=== PATIENT | female | born 1980 | race Two or more races ===

== ENCOUNTER 2025-02-02 12:28 | Outpatient (AMB) | payer OTHER, SELFPAY ==
--- NOTE | 2025-02-02 12:45 | A.OFFPC_ITS ---
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 Allergies bupropion [From Wellbutrin] Allergy (Verified 02/02/25 12:48) nausea, diarrhea zolpidem [From Ambien] Allergy (Verified 02/02/25 12:48) nausea, diarrhea Medication List - Last Reconciled 02/02/25 by PREET Varner- cetirizine (All Day Allergy (cetirizine)) 10 mg PO DAILY PRN docusate sodium 100 mg PO DAILY PRN 90 days fluticasone furoate 50 mcg/actuation 1 inh inhalation Q24H 30 days simethicone (Gas Relief (simethicone)) 80 mg PO BID-QID PRN 30 days Tobacco use date assessed: 02/02/25 Dental Screening Dental Screen Date: 02/02/25 Did you have a dental visit in the last 12 months?: Yes Did you have a dental problem in the last 6 months where you did not have access to dental care?: No Was dental information given to patient?: Patient has 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 History of Present Illness The patient is a 44-year-old female presenting with chronic constipation management. She relocated from [place] and seeks evaluation and treatment as a new patient. She has a medical history significant for a gastrectomy last fall, which resulted in a 45-pound weight loss. Her history also includes prior bariatric surgery, although details of that procedure were not provided. The patient denies any recent episodes of chest pain, shortness of breath, or hematochezia but confirms persistent constipation requiring medication. She requests refills for her allergy medications. Regular gynecological care includes Pap smears, and her electron gun inspector performs breast examinations. Despite encouragement, she refuses mammograms. She lacks recent colon screening in the [facility] and will be referred for such consideration. Hx of HTN, though better since bariatric surg. Requesting STD testing, reports completely asymptomatic Social History - Origin: [place] - Surgical History: History of bariatric surgery and gastrectomy - Gynecological care: Regular Pap smears with breast examinations by [facility] - Refusal of mammography - No recent [facility] colon screening Health Maintenance - Referral for colon screening due to la ck of recent examination in [facility]. - Encouragement for mammogram; patient r efusal noted. Review of Systems - Cardiovascular: Denies chest pain or s hortness of breath - Gastrointestinal: Reports constipation ; denies abdominal pain or blood in stool - Respiratory: Denies shortness of breat h - General: Reports feeling generally wel l following gastrectomy Physical Exam General: Cooperative, healthy appearing, comfortable, no acute distress and well developed Orientation: Patient oriented x3 Limitations: No limitations Head: Normal to inspection Ears: Hearing grossly normal bilaterally Nose: Normal external nose present Face and sinus: Normal facial exam Eyes: Appearance normal, both eyes and all related structures Neck: Normal visual inspection and Yes full ROM Respiratory: Normal respiratory effort and able to speak in complete sentences. Clear to auscultation bilaterally Cardiovascular: Regular rate and rhythm. Normal S1 and S2 GI: Normal to inspection. Soft to palpation and nontender Skin: No rashes or lesions noted Neuro: Patient oriented x3 Extremities: Normal to inspection Results Plan For chronic constipation, medication management will continue, and allergy medication refills will be provided. A referral for a colonoscopy is indicated, considering her lack of recent colon screening. Despite discussion, the patient refused mammography, preferring examinations by her electron gun inspector. Education on mammogram importance was revisited, but the patient declined. Discussion Notes I discussed with the patient the management of her chronic constipation, including continuing her current medication regimen. In terms of her allergies, I confirmed that I will call in her medication refills. We reviewed her need for a colonoscopy, which she agreed to pursue given the uncertainty of having had one previously in [place]. The importance of regular mammograms was emphasized in light of her refusal; however, she prefers to rely on her electron gun inspector's breast exams instead. Follow-up on these matters was advised, highlighting health maintenance and preventative care strategies. Patient Instructions - Continue taking medication for constip ation as prescribed. - Monitor for any changes in symptoms an d report back if necessary. - Ensure to refill allergy medications f or continued allergy management. - Expect contact about scheduling a colo noscopy for screening. - Discuss regular health screenings with your healthcare provider, including the potential benefit of mammograms. PFSH Surgical History Hx of bariatric surgery Family History Father Hx of prostatic malignancy Hypertension Mother Diabetes Hypertension Social History (Reviewed 02/02/25 @ 13:21 by [facility] Housing: House Patient Tobacco Use Status: Never used Tobacco e-Cigarette/Vaping Use: Never Used service: No Current occupational status: employed Cognitive needs: No Hearing needs: No Vision needs: Yes Questionnaire PHQ-9 Over the last 2 weeks, how often have you been bothered by any of the following problems? 1. Little interest or pleasure in doing things: not at all 2. Feeling down, depressed, or hopeless: several days 3. Trouble falling or staying asleep, or sleeping too much: several days 4. Feeling tired or having little energy: several days 5. Poor appetite or overeating: several days 6. Feeling bad about yourself - or that you are a failure or have let yourself or your family down: not at all 7. Trouble concentrating on things, such as reading the newspaper or watching television: not at all 8. Moving or speaking so slowly that other people could have noticed. Or the opposite - being so fidgety or restless that you have been moving around a lot more than usual: not at all 9. Thoughts that you would be better off or of hurting yourself in some way: not at all Total score: 4 Depression Screening Interpretation: Negative Depression Screening Done: Yes 75915 - PHQ-9 Billing: Yes Source: Developed by Drs. Fareed Vick, Claudette Quezada, Justin Graves and colleagues, with an educational wallace from [employer]. Thrive Questionnaire Date Thrive assessed: 02/02/25 I am a: Parent/Caregiver What is your living situation today?: I choose not to answer this question Within the past 12 months, did the food you bought not last and you didn't have the money to get more?: I choose not to answer this question Within the past 12 months, did you worry whether your food would run out before you got money to buy more?: I choose not to answer this question Do you have trouble paying for medicines?: No Do you have trouble getting transportation to medical appointments?: No Do you have trouble paying your heating and electricity bill?: No Do you have trouble taking care of your child, family member or friend?: No Do you have trouble with day-to-day activities such as bathing, preparing meals, shopping, managing finances, etc.?: No Are you currently unemployed and looking for a job?: No Are you interested in more education?: No Please select the resources that you would like help with: None Currently or been in a relationship where the following occur: I choose not to answer THRIVE Score: 0 AUDIT C Alcohol Use Questionnaire (AUDIT-C) 1. How often do you have a drink containing alcohol?: Never 3. How often do you have six or more drinks on one occasion?: Never Total Score: 0 REBECA-7 AMB Questionnaire REBECA-7 Feeling nervous, anxious, or on edge: 2 = More than half the days Not being able to stop or control worryin = Not at all Worrying too much about different things: 1 = Several days Trouble relaxin = Several days Being so restless that it is hard to sit still: 0 = Not at all Becoming easily annoyed or irritable: 0 = Not at all Feeling afraid as if something awful might happen: 0 = Not at all Total REBECA-7 score (0-4 normal; 5-9 mild; 10-14 moderate; 15-21 severe): 4 Source: Developed by Drs. Fareed Vick, Claudette Quezada, Justin Graves and colleagues, with an educational wallace from [employer]. REBECA-7 Assessment Billing REBECA-7 Assessment Tool: REBECA-7 Assessment 68034 Physical exam (Primary Care) BMI result Body Mass Index 28.4 Depression Screening Interpretation: Negative Thrive Assessment: Date of Thrive Assessment Date Thrive assessed 02/02/25 02/02/25 12:00 Currently or been in a relationship where the following occur: I choose not to answer Coding Level of Care Code New Pt Level 3 (51293) Diagnoses Screening for colon cancer Z12.11 Constipation K59.00 HTN (hypertension) I10 Screening for STD (sexually transmitted disease) Z11.3 Additional Codes PHQ-9 - 29196 - PHQ-9 Billing: Yes ([id number]) REBECA-7 Assessment Billing - REBECA-7 Assessment Tool: REBECA-7 Assessment 32890 ([id number]) Assessment & Plan Assessment & Plan (1) Screening for colon cancer: Code(s): Z12.11 - Encounter for screening for malignant neoplasm of colon Category: Medical (2) Constipation: Code(s): K59.00 - Constipation, unspecified Category: Medical (3) HTN (hypertension): Code(s): I10 - Essential (primary) hypertension Category: Medical (4) Screening for STD (sexually transmitted disease): Code(s): Z11.3 - Encounter for screening for infections with a predominantly sexual mode of transmission Category: Medical Plan . Orders: Orders Complete Blood Count Auto Diff Today Z12.11 - Encounter for screening for malignant neoplasm of colon TSH reflex Free T4 Today Z12.11 - Encounter for screening for malignant neoplasm of colon UA CC w/rflx Micro + Cult Today Z12.11 - Encounter for screening for malignant neoplasm of colon Lipid Panel Today Z12.11 - Encounter for screening for malignant neoplasm of colon CT NG by PCR Today Z11.3 - Encounter for screening for infections with a predominantly sexual mode of transmission Comprehensive [place]. Panel Fast Today Z12.11 - Encounter for screening for malignant neoplasm of colon Vitamin D 25-OH Total Today I10 - Essential (primary) hypertension, K59.00 - Constipation, unspecified Syphilis Screen Today Z11.3 - Encounter for screening for infections with a predominantly sexual mode of transmission HIV Ab/Ag Today Z11.3 - Encounter for screening for infections with a predominantly sexual mode of transmission Hepatitis A,B,C Profile Today Z11.3 - Encounter for screening for infections with a predominantly sexual mode of transmission Referrals Gastroenterology Referral Z12.11 - Encounter for screening for malignant neoplasm of colon Medications: New simethicone (Gas Relief (simethicone)) 80 mg PO BID-QID 30 days PRN 120 tabs 0RF abdominal distention fluticasone furoate 50 mcg/actuation 1 inh inhalation Q24H 30 days 30 ea 2RF cetirizine (All Day Allergy (cetirizine)) 10 mg PO DAILY PRN 30 tabs 3RF allergy symptoms docusate sodium 100 mg PO DAILY 90 days PRN 90 caps 0RF constipation
[2025-02-02 12:47] VITALS: BP 120/78; PULSE 77; RESP 18; TEMP 36.9; O2SAT 97; BMI 28.4
--- OUTSIDE RECORDS SUMMARY | 2025-02-02 12:51 | XMS_ITS | Clinical Summary ---
Author Organization 175 [facility] Address [address] [place] [address] Phone Care Team Providers Care Ornamental Iron Erector Name Role Phone Aldo Weiner RUG SAMPLE BEVELER Primary Care Provider Allergies Active Allergy Reactions Criticality Noted Date Comments Bupropion Nausea And Vomiting High 11/18/2019 Medications aspirin-acetamino phen-caffeine (EXCEDRIN MIGRAINE) 250-250-65 mg per tablet Take 1 tablet by mouth every 6 hours. Active baclofen (LIORESAL) 10 mg tablet 1 Active cetirizine (ZyrTEC) 10 mg tablet Take 10 mg by mouth daily. Active clonazePAM (KlonoPIN) 0.5 mg tablet 1 Active diclofenac (Voltaren Arthritis Pain) 1 % topical gel Place 1 Applicator onto the skin 4 times daily. Active dicyclomine (BENTYL) 10 mg capsule Take 10 mg by mouth 4 times daily (before meals and nightly). Active ondansetron (ZOFRAN) 8 mg tablet Take 8 mg by mouth every 8 hours as needed for Nausea. Active sodium chloride (AYR) 0.65 % nasal drops 2 Sprays by Nasal route 4 times daily as needed. Active traMADoL (ULTRAM) 50 mg tablet Take 50 mg by mouth every 12 hours as needed for Pain. Active valACYclovir (VALTREX) 1 gram tablet Take 1,000 mg by mouth 2 times daily. Active CHOLECALCIFEROL, VITAMIN D3, ORAL Take?by mouth. Active cholecalciferol (Vitamin D3) 50 mcg (2,000 unit) capsuleIndication s:Postoperative intestinal malabsorption Take 1 capsule (2,000 Units total) by mouth 1 (one) time each day. 30 each 11 11/12/19 26 Active Active Problems Problem Noted Date Diagnosed Date Atypical nevus of left midback 09/29/2021 Encounters Date Type Department Care Team Description 11/11/2024 1:15 PM EST Office Visit Bariatric Surgery [address] [place] [address] Rancho Cee MD Postoperative intestinal malabsorption (Primary Dx); Over weight from Last 3 Months Surgical History Surgery Date Site/Laterality Comments CHOLECYSTECTOMY PROCEDURE: [place] LAPAROSCOPY SURG CHOLECYSTECTOMY SECTION PROCEDURE: [place] DELIVERY ONLY HERNIA REPAIR PROCEDURE: [place] REPAIR FIRST ABDOMINAL WALL HERNIA OTHER SURGICAL HISTORY 2014 PROCEDURE: ---- OTHER ----; COMMENT: sleeve bariatric Family History Medical History Relation Name Comments Prostate cancer Father Diabetes Mother Hypertension Mother Relation Name Status Comments Father Alive Mother Alive Social History Tobacco Use Types Packs/Day Years Used Date Smoking Tobacco: Never Smokeless Tobacco: Never Alcohol Use Standard Drinks/Week Comments No 0 (1 standard drink = 0.6 oz pur e alcohol) Comments Unknown Sex and Gender Information Value Date Recorded Sex Assigned at Not on file Legal Sex Female 4:57 PM EST Gender Identity Not on file Sexual Orientation Not on file Obstetrics History Last Filed Vital Signs Vital Sign Reading Time Taken Comments Blood Pressure 121/80 11/11/2024 1:35 PM EST Pulse 86 11/11/2024 1:35 PM EST Temperature 36.5 ??C (97.7 ??F) 11/11/2024 1:35 PM ES T Respiratory Rate - - Oxygen Saturation - - Inhaled Oxygen Concentration - - Weight 73 kg (161 lb) 11/11/2024 1:35 PM EST Height 157.5 cm (5' 2 ) 11/11/2024 1:35 PM EST Body Mass Index 29.45 11/11/2024 1:35 PM EST Plan of Treatment Upcoming Encounters Date Type Department Care Team (Late st Contact Info) Description 03/10/2025 2:15 PM EDT Office Visit Bariatric Surgery [address] [place] [phone] Rancho Cee MD 175 [facility] [address] [place] [address] Health Maintenance Due Date Last Done Comments Breast Cancer Screening 1979 Hepatitis B Vaccines (1 of 3 - 19+ 3-dose series) 1998 Cervical Cancer Screening: Pap Smear 2000 Pneumococcal Vaccine: Pediatrics (0 to 5 Years) and At-Risk Patients (6 to 64 Years) (2 of 2 - PCV) 05/21/2020 05/21/2019 Colorectal Cancer Screening: Colonoscopy 08/16/2022 Depression Screening 08/16/2022 HIV Screening 08/16/2022 Hepatitis C Screening 08/16/2022 Social Influencers of Health Screening 08/16/2022 COVID-19 Vaccine ( season) 2024 09/03/2021, 11/05/2020, 10/15/2020 Hypertension/CHF/CAD Annual BMP Blood Test 08/12/2024 06/14/2023 Influenza Vaccine (Season Ended) 2025 07/21/2021, 07/19/2019, 07/29/2018, Additional history exists Cholesterol Screening (Lipid Panel) 06/14/2028 06/14/2023 DTaP,Tdap,and Td Vaccines (2 - Td or Tdap) 05/21/2029 05/21/2019 HIB Vaccines Aged Out No longer eligi ble based on patient's age to complete this topic HPV Vaccines Aged Out No longer eligi ble based on patient's age to complete this topic Hepatitis A Vaccines Aged Out No long er eligible based on patient's age to complete this topic IPV Vaccines Aged Out No longer eligi ble based on patient's age to complete this topic MMR Vaccines Aged Out No longer eligi ble based on patient's age to complete this topic Meningococcal ACWY Vaccine Aged Out N o longer eligible based on patient's age to complete this topic Meningococcal B Vaccine Aged Out No l onger eligible based on patient's age to complete this topic RSV Immunization Patients Under 20 months Aged Out No longer eligible based on patient's age to complete this topic Varicella Vaccines Aged Out No longer eligible based on patient's age to complete this topic Procedures Procedure Name Priority Date/Time Associated Diagnosis Comments ZINC Routine 11/11/2024 1:54 PM EST Postoperative intestinal malabsorption VITAMIN D 25 HYDROXY Routine 11/11/2024 1:54 PM EST Postoperative intestinal malabsorption VITAMIN B12 Routine 11/11/2024 1:54 PM EST Postoperative intestinal malabsorption VITAMIN B1 Routine 11/11/2024 1:54 PM EST Postoperative intestinal malabsorption VITAMIN A Routine 11/11/2024 1:54 PM EST Postoperative intestinal malabsorption SELENIUM SERUM Routine 11/11/2024 1:54 PM EST Postoperative intestinal malabsorption IRON AND TIBC Routine 11/11/2024 1:54 PM EST Postoperative intestinal malabsorption FOLATE Routine 11/11/2024 1:54 PM EST Postoperative intestinal malabsorption CALCIUM Routine 11/11/2024 1:54 PM EST Postoperative intestinal malabsorption ALBUMIN Routine 11/11/2024 1:54 PM EST Postoperative intestinal malabsorption ANNUAL BMP BLOOD TEST Routine 06/14/2023 LIPID PANEL Routine 06/14/2023 from Last 3 Months or Most Recently Relevant to Health Maintenance Results * Iron and TIBC (11/11/2024 1:54 PM EST) Iron 90 40 - 150 mcg/dL LAB CHEMISTRY METHOD 11/11/2024 7:27 PM EST [facility] TIBC 349 250 - 450 mcg/dL LAB CHEMISTRY METHOD 11/11/2024 7:27 PM EST [facility] Iron Saturation 26 15 - 50 % LAB CHEMISTRY METHOD 11/11/2024 7:27 PM EST [facility] Blood Venous blood specimen / Unknown Venipuncture / Unknown 11/11/2024 1:54 PM EST 11/11/2024 1:54 PM EST Rancho Cee MD LAB BLOOD ORDERABLES Final R esult Performing Organization Address City/[facility]/ZIP Co de Phone Number [facility] [address] [place] [address], * Zinc (11/11/2024 1:54 PM EST) Zinc 99 60 - 130 ug/dL 11/14/2024 1:50 PM EST [facility] Comment: Elevated results may be due to sample collected in a non-certified trace element-free tube. This test was developed and the performance characteristics determined by [facility]. It has not been cleared or approved by the FDA. The laboratory is regulated under CLIA as qualified to perform high-complexity testing. This test is used for patient testing purposes. It should not be regarded as investigational or for research. Test performed at [facility], [address] , [place], [place] ??[address] ? [phone] Indu Moore MD, PhD - Documentation Consultant Blood Venous blood specimen / Unknown Venipuncture / Unknown 11/11/2024 1:54 PM EST 11/11/2024 1:54 PM EST Rancho Cee MD LAB BLOOD ORDERABLES Final R esult [facility] [address] [place] [address] * Vitamin A (11/11/2024 1:54 PM EST) Vitamin A 66 38 - 106 ug/dL 11/17/2024 7:52 AM EST [facility] Comment: This test was developed and the performance characteristics determined by [facility]. It has not been cleared or approved by the FDA. The laboratory is regulated under CLIA as qualified to perform high-complexity testing. This test is used for patient testing purposes. It should not be regarded as investigational or for research. Test performed at [facility], [address] [address] [facility] [place], [place] [address] ? [phone] Indu Moore MD, PhD - Documentation Consultant Blood Venous blood specimen / Unknown Venipuncture / Unknown 11/11/2024 1:54 PM EST 11/11/2024 1:54 PM EST Rancho Cee MD LAB BLOOD ORDERABLES Final R esult Performing Organization Address City/[facility]/ZIP Co de Phone Number [facility] [address] [place], [place] [phone] * Selenium serum (11/11/2024 1:54 PM EST) [facility] Signature Selenium 147 63 - 160 mcg/L 11/15/2024 8:[address] [facility] Comment: This test was developed and its analytical performance characteristics have been determined by [facility] [place] [place]. It has not been cleared or approved by the U.S. Food and Drug Administration. This assay has been validated pursuant to the CLIA regulations and is used for clinical purposes. Test Performed by [facility], [facility], [address] [place] [address] Jair Hughes M.D., Ph.D., Director of Laboratories , CLIA [id number] Blood Venous blood specimen / Unknown Venipuncture / Unknown 11/11/2024 1:54 PM EST 11/11/2024 1:54 PM EST Rancho Cee MD LAB BLOOD ORDERABLES Final R esult [facility] [address] [place] [address] * (ABNORMAL) Vitamin D 25 hydroxy (11/11/2024 1:54 PM EST) [facility] Vit D, 25-Hydroxy 23.4(L) 30.0 - 80.0 ng/mL LAB CHEMISTRY METHOD 11/11/2024 7:40 PM EST [facility] Blood Venous blood specimen / Unknown Venipuncture / Unknown 11/11/2024 1:54 PM EST 11/11/2024 1:54 PM EST Rancho Cee MD LAB BLOOD ORDERABLES Final R esult [facility] [address] [place] [address], * Vitamin B1 (11/11/2024 1:54 PM EST) [facility] Vitamin B1 Whole Blood 71 38 - 122 ug/L 11/19/2024 9:[address] [facility] Comment: This test was developed and the performance characteristics determined by [facility]. It has not been cleared or approved by the FDA. The laboratory is regulated under CLIA as qualified to perform high-complexity testing. This test is used for patient testing purposes. It should not be regarded as investigational or for research. Test performed at [facility], [address] , [place], [place] ??[address] ? [phone] Indu Moore MD, PhD - Documentation Consultant Blood Venous blood specimen / Unknown Venipuncture / Unknown 11/11/2024 1:54 PM EST 11/11/2024 1:54 PM EST Rancho Cee MD LAB BLOOD ORDERABLES Final R esult [facility] [address] [place] [address] * (ABNORMAL) Folate (11/11/2024 1:54 PM EST) [facility] Folate >20.0(H) 2.8 - 17.0 ng/ml LAB CHEMISTRY METHOD 11/11/2024 7:50 PM EST [facility] Blood Venous blood specimen / Unknown Venipuncture / Unknown 11/11/2024 1:54 PM EST 11/11/2024 1:54 PM EST us Rancho Cee MD LAB BLOOD ORDERABLES Final R esult Performing Organization Address City/[facility]/ZIP Co de Phone Number [facility] [address] [place] [address], [place] [phone] * Vitamin B12 (11/11/2024 1:54 PM EST) [facility] Vitamin B-12 728 250 - 900 pcg/mL LAB CHEMISTRY METHOD 11/11/2024 7:50 PM EST [facility] Blood Venous blood specimen / Unknown Venipuncture / Unknown 11/11/2024 1:54 PM EST 11/11/2024 1:54 PM EST us Rancho Cee MD LAB BLOOD ORDERABLES Final R esult Performing Organization Address [facility] Co de Phone Number [facility] [address] [place] [address], [place] [phone] * Calcium (11/11/2024 1:54 PM EST) Pathologist [facility] Calcium 9.3 8.5 - 10.5 mg/dL LAB CHEMISTRY METHOD 11/11/2024 7:27 PM EST [facility] Blood Venous blood specimen / Unknown Venipuncture / Unknown 11/11/2024 1:54 PM EST 11/11/2024 1:54 PM EST us Rancho Cee MD LAB BLOOD ORDERABLES Final R esult Performing Organization Address City/[facility]/ZIP Co de Phone Number [facility] [address] [place] [address], [place] [phone] * Albumin (11/11/2024 1:54 PM EST) [facility] Albumin 3.8 3.2 - 5.0 g/dL LAB CHEMISTRY METHOD 11/11/2024 7:27 PM EST [facility] Blood Venous blood specimen / Unknown Venipuncture / Unknown 11/11/2024 1:54 PM EST 11/11/2024 1:54 PM EST Rancho Cee MD LAB BLOOD ORDERABLES Final R esult [facility] [address] [place] [address], [place] [phone] * Annual BMP Blood Test (06/14/2023) [facility] Annual BMP Blood Test Abstracted Historical Provider HEALTH MAINTENANCE Final Result * (ABNORMAL) Lipid panel (06/14/2023) [facility] LDL/HDL Ratio 5(A) 0 - 4 Triglycerides 153(A) 0 - 150 mg/dL Cholesterol 223(A) 0 - 200 mg/dL HDL 47 >=40 mg/dL LDL Cholesterol 146(A) 0 - 100 mg/dL Blood Venous blood specimen / Unknown Historical Provider LAB BLOOD ORDERABLES Britney l Result from Last 3 Months or Most Recently Relevant to Health Maintenance Insurance [facility] [employer] Advance Directives Documents on File Type Date Recorded Patient Metal Slitter Expl anation Health Care Decision (hx) 03/16/2014 AD MACIEL DIRECTIVE Health Care Decision (hx) 03/16/2014 AD MACIEL DIRECTIVE Care Teams Ornamental Iron Erector Relationship Specialty Start Date End Date Aldo Weiner NP [address] [place] [address] PCP - General 02/14/23
== END 2025-02-02 14:01 | disposition home or self-care (01) ==
LOC: HO.HMCC 12:29
PROVIDERS: PCP Internal Medicine; Visit Provider Nurse Practitioner Family
DX: Z12.11 Encounter for screening for malignant neoplasm of colon (principal); K59.00 Constipation, unspecified; I10 Essential (primary) hypertension; Z11.3 Encounter for screening for infections with a predominantly sexual mode of transmission

== ENCOUNTER → 2025-02-02 12:28 | Outpatient (BNVA) | payer OTHER, SELFPAY | PROVIDERS: PCP Internal Medicine; Visit Provider Nurse Practitioner Family | DX: K59.00 Constipation, unspecified (principal); I10 Essential (primary) hypertension; Z98.84 Bariatric surgery status | CPT/HCPCS: 96127; 99202 ==

== ENCOUNTER 2025-02-13 08:02 | Outpatient (REF) | payer OTHER, SELFPAY ==
--- OUTSIDE RECORDS SUMMARY | 2025-02-13 08:05 | XMS_ITS | Clinical Summary ---
Author Organization 175 [facility] Address [address] [place] [address] Phone Care Team Providers Care Ripening Room Attendant Name Role Phone Aldo Weiner SENIOR DIRECTOR MARKETING Primary Care Provider Allergies Active Allergy Reactions [...] Date Atypical nevus of left midback 09/29/2021 Surgical History Surgery Date Site/Laterality Comments CHOLECYSTECTOMY PROCEDURE: [place] LAPAROSCOPY SURG CHOLECYSTECTOMY SECTION PROCEDURE: [place] DELIVERY ONLY HERNIA REPAIR PROCEDURE: [place] REPAIR FIRST ABDOMINAL WALL HERNIA OTHER SURGICAL [...] 2:15 PM EDT Office Visit Bariatric Surgery - [place] [address] [facility] [address] [place] [phone] Rancho Cee MD [address] [facility] [address] [place] [address] Health Maintenance Due Date Last Done Comments [...] Procedure Name Priority Date/Time Associated Diagnosis Comments HM ANNUAL BMP BLOOD TEST Routine 06/14/2023 LIPID PANEL Routine 06/14/2023 from Last 3 Months or Most Recently Relevant to Health Maintenance Results * Annual BMP Blood Test (06/14/2023) Annual BMP Blood Test Abstracted Historical Provider HEALTH MAINTENANCE Final Result * (ABNORMAL) Lipid panel (06/14/2023) LDL/HDL Ratio 5(A) 0 - 4 Triglycerides 153(A) 0 - 150 mg/dL Cholesterol 223(A) 0 - 200 mg/dL HDL 47 >=40 mg/dL LDL Cholesterol 146(A) 0 - 100 mg/dL Blood Venous blood specimen / Unknown Historical Provider LAB BLOOD ORDERABLES Britney l Result from Last 3 Months or Most Recently Relevant to Health Maintenance Insurance [facility] [employer] Advance Directives Documents on File Type Date Recorded Patient Phone Representative Expl anation Health Care Decision (hx) 03/16/2014 AD MACIEL DIRECTIVE Health Care Decision (hx) 03/16/2014 AD MACIEL DIRECTIVE Care Teams Ripening Room Attendant Relationship Specialty Start Date End Date Aldo Weiner NP [address] [place] [address] PCP - General 02/14/23
[2025-02-13 10:22] LABS: MANUAL DIFF FLAG NO
[2025-02-13 10:31] LABS: Basophils Absolute Auto 0.1 X10*3/uL (0.0-0.2); Basophils Percent Auto 0.8 % (0-2); Eosinophils Absolute Auto 0.4 X10*3/uL (0.0-0.4); Eosinophils Percent Auto 5.6 % (0-4); Hematocrit 37.6 % (37.0-47.0); Imm Gran Abs Auto 0.02 X10*3/uL (0.00-0.03); Imm Gran Pct Auto 0.3 % (0.0-0.4); Lymphocytes Absolute Auto 2.5 X10*3/uL (1.2-4.9); Lymphocytes Percent Auto 32.9 % (20-40); Mean Corpuscular HGB Conc 34.6 g/dl (31.0-35.0); Mean Corpuscular Hemoglobin 31.6 pg (27.0-33.0); Mean Corpuscular Volume 91.5 fL (80.0-98.0); Mean Platelet Volume 9.8 fL (9.4-12.3); Monocytes Absolute Auto 0.6 X10*3/uL (0.1-1.2); Monocytes Percent Auto 8.2 % (2-11); Neutrophils Percent Auto 52.2 % (45-73); Platelet Count 381 X10*3/uL (160-400); Red Blood Count 4.11 X10*6/uL (4.20-5.50); Red Cell Distribution Width 12.8 % (11.0-16.0); White Blood Count 7.6 X10*3/uL (4.8-10.8)
[2025-02-13 11:06] LABS: Alanine Aminotransferase 27 U/L (0-31); Albumin Level 3.7 g/dL (3.5-5.0); Alkaline Phosphatase 70 U/L (39-117); Anion Gap 11 (12-20); Aspartate Amino Transferase 26 U/L (5-31); Bilirubin Total 0.3 mg/dL (0.0-1.0); Blood Urea Nitrogen 17 mg/dL (9-16); Calcium 8.9 mg/dL (8.4-10.2); Carbon Dioxide 26 mmol/L (22-29); Chloride 108 mmol/L (96-108); Cholesterol 178 mg/dL (<200); Estimated Glomerular Filt Rate > 60; Glucose Fasting 78 mg/dL (60-99); HDL Cholesterol 47 mg/dL (>40); LDL Cholesterol Calculated 108 mg/dL (<100); Potassium 3.7 mmol/L (3.3-5.1); Sodium 141 mmol/L (135-145); TSH reflex Free T4 1.62 uIU/mL (0.32-4.0); Total Protein 6.5 g/dL (6.5-8.0); Triglycerides 117 mg/dL (<150); Vitamin D 25-OH Total 47.9 ng/mL (>30)
[2025-02-13 11:11] LABS: HBS Num1 0.47 mIU/mL (0-7.99); HBc Num1 0.13 S/CO (0.00-0.79); HBsAGNum1 0.34 S/CO (0.00-0.99); HIV AB/AG Nonreactive (Nonreactive); HIV Num 1 0.06 S/CO (0.00-0.99); Hepatitis A Antibody IgM 0.18 Index (0-0.79); Hepatitis B Core Antibody Nonreactive (Nonreactive); Hepatitis B Surface Antigen Negative (Negative); ~HepC Num1 0.14 S/CO (0.00-0.79); ~Hepatitis A Antibody IgM Nonreactive (Nonreactive); ~Hepatitis B Surface Antibody NONREACTIVE (Nonreactive); ~Hepatitis C Antibody Nonreactive (Nonreactive)
[2025-02-13 11:13] LABS: Syphilis Screen Nonreactive (Nonreactive)
[2025-02-13 11:18] LABS: Appearance Urine Clear; Color Urine Dark Yellow; Glucose Urine UA Negative (Negative); Leukocyte Esterase Urine Small (1+) (Negative); Nitrite Urine Positive (Negative); UMIC TRIGGER UACC YES; Urine Blood Trace (Negative); Urine Ketones Negative (Negative); Urine Protein Negative (Neg-Trace)
[2025-02-13 11:27] LABS: Bacteria Urine 4+ (None Seen); Hyaline Casts Urine 0-2 /LPF (0-2); RBC Urine 0-2 /HPF (0-2); Squamous Epithelial Cell Urine 0-2 /HPF (0-2); UACC Culture Trigger YES; WBC Urine 21-50 /HPF (0-5)
[2025-02-13 12:15] LABS: CT PCR NOT DETECTED (Not Detect.); NG PCR NOT DETECTED (Not Detect.)
== END 2025-02-13 08:03 | disposition home or self-care (01) ==
LOC: HO.HMGCLDS 08:02
PROVIDERS: PCP Nurse Practitioner Family; Visit Provider Nurse Practitioner Family
DX: Z12.11 Encounter for screening for malignant neoplasm of colon (principal); K59.00 Constipation, unspecified; I10 Essential (primary) hypertension; Z11.3 Encounter for screening for infections with a predominantly sexual mode of transmission
CPT/HCPCS: 80053; 80061; 81001; 81003; 82306; 84443; 85025; 86704; 86706; 86709; 86780; 86803; 87086; 87088; 87186; 87340; 87389; 87491; 87591

== ENCOUNTER 2025-04-06 13:24 | Outpatient (AMB) | payer OTHER, SELFPAY ==
[2025-04-06 13:57] VITALS: BP 128/80; PULSE 78; TEMP 36.9; O2SAT 98; BMI 29.7
--- NOTE | 2025-04-06 13:57 | AM.OFFWIN_ITS ---
Intake Vital Signs 04/06/25 13:57 Height 5 ft 1 in Weight 157 lb BMI 29.7 BP 128/80 Blood Pressure Location Lt brachial Position Sitting Pulse 78 Pulse Source Pulse Oximeter Temp 98.4 F Temp Source Oral Pulse Oximetry (%) 98 Oxygen Delivery Method Room Air Intake Visit Reasons: EP ? UTI Intake Note: presents low back pain, low abdominal pain, headache, frequent urination Patient Tobacco Use Status: Never used Tobacco Allergies bupropion (From Wellbutrin) Allergy (Verified 04/06/25 14:02) nausea, diarrhea zolpidem (From Ambien) Allergy (Verified 04/06/25 14:02) nausea, diarrhea HPI HPI Comments History of Present Illness Details History - The patient is a 44-year-old female pr esenting with suspected urinary tract infection and nephrolithiasis. - She has been having urinary frequency, lower abd pain, left lower back pain, and a COLON for the past few days. - She has a history of nephrolithiasis w ith recurrent small stones causing hematuria and persistent symptoms. - Despite multiple courses of antibiotic s, symptoms persist. - She experiences lower back pressure, h eadache, and fatigue, but no fever, nausea, or vomiting. - Previous urological consultations divine cated stones were too small for surgical removal. - She has a urologist and has an appt in the next year. - She denies dysuria, hematuria, CP, SOB , vaginal discharge or bleeding. - She needs a refill on her vaginal crea m. Physical Exam General: Cooperative, healthy appearing, comfortable, no acute distress and well developed. Reports feeling tired. Cardiac: Normal S1 and S2. RRR, no M/R/G noted. Respiratory: Normal respiratory effort and able to speak in complete sentences. Clear to auscultation bilaterally. No w/r/r noted. Skin: No rashes or lesions noted. Reports irritation and discomfort in the external area. GI: Normal inspection. Normal BS noted. Soft, non-tender, non-distended. TTP of RL and LL quadrants. No guarding or rebound tenderness noted. Back: Negative CVA bilaterally. Patient was informed and verbally consented to the use of an ambient scribe for clinic note documentation during this visit. [facility] Surgical History Hx of bariatric surgery Family History Father Hx of prostatic malignancy Hypertension Mother Diabetes Hypertension Social History Housing: House Patient Tobacco Use Status: Never used Tobacco e-Cigarette/Vaping Use: Never Used service: No Current occupational status: employed Cognitive needs: No Hearing needs: No Vision needs: Yes Review of Systems Const All systems reviewed & are unremarkable except as noted in HPI and below Physical Exam Vital Signs: Last Vital Signs Temp 98.4 F 04/06/25 13:57 Pulse 78 04/06/25 13:57 BP 128/80 04/06/25 13:57 Pulse Ox 98 04/06/25 13:57 Oxygen Delivery Method Room Air 04/06/25 13:57 BMI result Body Mass Index 29.7 Results AMB Urinalysis, Automated UA Leukoctes 0 Randal/uL Last Edit by Gail Pulido MA on 04/06/25 14:07 UA Nitrite Negative Last Edit by Gail Pulido MA on 04/06/25 14:07 UA Urobilinogen 0.2 mg/dL Last Edit by Gail Pulido MA on 04/06/25 14:07 UA Protein 0 mg/dL Last Edit by Gail Pulido MA on 04/06/25 14:07 UA pH 6.0 Last Edit by Gail Pulido MA on 04/06/25 14:07 UA Blood 10 James/uL Last Edit by Gail Pulido MA on 04/06/25 14:07 UA Specific Taylor 1.025 Last Edit by Gail Pulido MA on 04/06/25 14:07 UA Ketone Negative Last Edit by Gail Pulido MA on 04/06/25 14:07 UA Bilirubin 0 mg/dL Last Edit by Gail Pulido MA on 04/06/25 14:07 UA Glucose 0 mg/dL Last Edit by Gali Pulido MA on 04/06/25 14:07 Results Reviewed Results Reviewed: Laboratory Last Values Urine pH (Auto) 6.0 04/06/25 14:05 Specific Taylor (Auto) 1.025 04/06/25 14:05 Urine Protein (Auto) 0 mg/dL 04/06/25 14:05 Glucose (UA)(Auto) 0 mg/dL 04/06/25 14:05 Urine Ketones (Auto) Negative 04/06/25 14:05 Urine Blood (Auto) 10 James/uL 04/06/25 14:05 Urine Nitrite (Auto) Negative 04/06/25 14:05 Urine Bilirubin (Auto) 0 mg/dL 04/06/25 14:05 Urine Urobilinogen (Auto) 0.2 mg/dL 04/06/25 14:05 Leukocyte Esterase (Auto) 0 Randal/uL 04/06/25 14:05 Assessment & Plan Assessment & Plan (1) Urinary frequency: Code(s): R35.0 - Frequency of micturition Plan Most likely kidney stone vs UTI Plan 1. Nephrolithiasis - Flomax prescribed to facilitate stone passage. - Advised to stay hydrated and watch for fever or vomiting. - Follow-up with urologist recommended for further management. 2. Hematuria - Hematuria linked to nephrolithiasis; no additional treatment needed. 3. Urinary Tract Infection (Suspected) - No antibiotics given due to absence of infection; focus remains on nephrolithiasis management. Orders: Orders Urine Culture Today N39.0 - Urinary tract infection, site not specified AMB Urinalysis Automated Today Z13.9 - Encounter for screening, unspecified Medications: New tamsulosin (Flomax) 0.4 mg PO DAILY 14 caps 0RF Coding Level of Care Code Est Pt Level 3 (02743) Diagnoses Urinary frequency R35.0
--- OUTSIDE RECORDS SUMMARY | 2025-04-06 14:07 | XMS_ITS | Clinical Summary ---
Author Organization 175 [facility] Address [address] [place] [address] Phone Care Team Providers Care Engine Test Cell Technician Name Role Phone Aldo Weiner QUANTITATIVE SOFTWARE ENGINEER Primary Care Provider Allergies Active Allergy Reactions Criticality Noted Date Comments Bupropion Nausea And Vomiting High 11/18/2019 Hydroxyzine GI intolerance 03/10/2025 Medications aspirin-acetamino phen-caffeine (EXCEDRIN MIGRAINE) 250-250-65 mg [...] times daily. Active CHOLECALCIFEROL, VITAMIN D3, ORAL Take by mouth. Active cholecalciferol (Vitamin D3) 50 mcg (2,000 unit) capsuleIndication s:Postoperative intestinal malabsorption Take 1 capsule (2,000 Units total) by mouth 1 (one) time each day. 30 each 11 11/12/19 26 Active Active Problems Problem Noted Date Diagnosed Date Anxiety 03/10/2025 Asthma 03/10/2025 Intermittent asthma 03/10/2025 Cervical myofascial strain 03/10/2025 Gastroesophageal reflux 03/10/2025 Hypertension, essential 03/10/2025 Major depressive disorder 03/10/2025 Nephrolithiasis 03/10/2025 Obstructive sleep apnea 03/10/2025 Prediabetes 03/10/2025 Simple obesity 03/10/2025 Severe obesity (BMI 35.0-39. 9) with comorbidity (CMS/HCC V24, CMS/HCC V28) 03/10/2025 TMJ syndrome 03/10/2025 Atypical nevus of left midback 09/29/2021 Encounters Date Type Department Care Team Description 03/25/2025 Lab Requisition [facility] - Main Lab [address] [place] [address] Lara Howard PA Unspecified abdominal pain; Urinary tract infection, site not specified 03/10/2025 2:15 PM EDT Office Visit Bariatric Surgery - [place] 175 [facility] [address] [place] [phone] Rancho Cee MD Postoperative intestinal malabsorption (Primary Dx); Over weight 03/10/2025 11:43 AM EDT - 03/10/2025 11:59 PM EDT Hospital Encounter [facility] CT Scan [address] [place] [phone] Unspecified abdominal pain Discharge Disposition: Home or Self Care 03/04/2025 Lab Requisition [facility] Lab [address] [place] [address] Lara Howard PA Urinary tract infection, site not specified; Unspecified abdominal pain from Last 3 Months Surgical History Surgery Date Site/Laterality Comments CHOLECYSTECTOMY PROCEDURE: [place] LAPAROSCOPY SURG CHOLECYSTECTOMY SECTION PROCEDURE: [place] DELIVERY ONLY HERNIA REPAIR PROCEDURE: [place] REPAIR FIRST ABDOMINAL WALL HERNIA OTHER SURGICAL [...] Sign Reading Time Taken Comments Blood Pressure 113/64 03/10/2025 2:33 PM EDT Pulse 87 03/10/2025 2:33 PM EDT Temperature 36.6 C (97.8 F) 03/10/2025 2:33 PM EDT Respiratory Rate - - Oxygen Saturation - - Inhaled Oxygen Concentration - - Weight 70.3 kg (155 lb) 03/10/2025 2:33 PM EDT Height 157.5 cm (5' 2 ) 03/10/2025 2:33 PM EDT Body Mass Index 28.35 03/10/2025 2:33 PM EDT Plan of Treatment Upcoming Encounters Date Type Department Care Team (Late st Contact Info) Description 07/28/2025 1:15 PM EST Office Visit Bariatric Surgery - [place] [address] [phone] Rancho Cee MD 175 [facility] Brian [address] [place] [phone] Health Maintenance Due Date Last Done Comments Breast Cancer Screening 1979 Hepatitis B Vaccines (1 of 3 - 19+ 3-dose series) 1998 Cervical Cancer Screening: Pap Smear 2000 Pneumococcal Vaccine: Pediatrics (0 to 5 Years) and At-Risk Patients (6 to 49 Years) (2 of 2 - PCV) 05/21/2020 05/21/2019 Colorectal Cancer Screening: Colonoscopy 08/16/2022 HIV Screening 08/16/2022 Hepatitis C Screening 08/16/2022 Social Influencers of Health Screening 08/16/2022 COVID-19 Vaccine ( season) 2024 09/03/2021, 11/05/2020, 10/15/2020 Hypertension/CHF/CAD Annual BMP Blood Test 08/12/2024 06/14/2023 Depression Screening 09/17/2024 Influenza Vaccine (#1) 2025 , 07/19/2019, 07/29/2018, Additional history exists Cholesterol Screening [...] Procedure Name Priority Date/Time Associated Diagnosis Comments CULTURE URINE Routine 03/25/2025 9:45 AM EDT Unspecified abdominal pain Urinary tract infection, site not specified VITAMIN D 25 HYDROXY Routine 03/10/2025 2:59 PM EDT Postoperative intestinal malabsorption CT ABDOMEN PELVIS WO CONTRAST Routine 03/10/2025 11:54 AM EDT Unspecified abdominal pain CULTURE URINE Routine 03/04/2025 12:00 AM EDT Urinary tract infection, site not specified Unspecified abdominal pain HM ANNUAL BMP BLOOD TEST Routine 06/14/2023 LIPID PANEL Routine 06/14/2023 from Last 3 Months or Most Recently Relevant to Health Maintenance Results * (ABNORMAL) Culture urine (03/25/2025 9:45 AM EDT) Only the most recent of2 resultswithin the time period is included. Culture, Urine >100,000 CFU/mL Escherichia coli(A) MERCED 03/27/2025 11:07 AM EDT [facility] Comment: This is an edited result. Previous organism was Gram negative bacilli on 03/26/2025 at 0815 EDT. Urine Urine specimen obtained by clean catch procedure / Unknown 03/25/2025 9:45 AM EDT 03/25/2025 2:11 PM EDT Narrative Organism Antibiotic Method Susceptibility Escherichia coli Amoxicillin/Clavulanate MERCED 4 ug/ml: Susceptible Escherichia coli Ampicillin/Sulbactam MERCED 16 ug/ml: Intermediate Escherichia coli Piperacillin/Tazobactam MERCED <=4 ug/ml: Susceptible Escherichia coli Cefazolin (Urine) MERCED 4 ug/ml: Susceptible Escherichia coli Cefoxitin MERCED <=4 ug/ml: Susceptible Escherichia coli Ceftazidime MERCED <=0.5 ug/ml: Susceptible Escherichia coli Ceftriaxone MERCED <=0.25 ug/ml: Susceptible Escherichia coli Cefepime MERCED <=0.12 ug/ml: Susceptible Escherichia coli Meropenem MERCED <=0.25 ug/ml: Susceptible Escherichia coli Amikacin MERCED 4 ug/ml: Susceptible Escherichia coli Gentamicin MERCED <=1 ug/ml: Susceptible Escherichia coli Ciprofloxacin MERCED >=4 ug/ml: Resistant Escherichia coli Levofloxacin MERCED >=8 ug/ml: Resistant Escherichia coli Nitrofurantoin MERCED <=16 ug/ml: Susceptible Escherichia coli Trimethoprim/Sulfamethoxazole MERCED <=20 ug/ml: Susceptible us Lara XIE LAB MICROBIOLOGY - GENERAL ORD ERABLES Final Result [facility] [address] [place] [address], * Vitamin D 25 hydroxy (03/10/2025 2:59 PM EDT) Vit D, 25-Hydroxy 33.9 30.0 - 80.0 ng/mL LAB CHEMISTRY METHOD 03/10/2025 7:17 PM EDT [facility] Blood Venous blood specimen / Unknown Venipuncture / Unknown 03/10/2025 2:59 PM EDT 03/10/2025 2:59 PM EDT us Rancho Cee MD LAB BLOOD ORDERABLES Final R esult [facility] [address] [place] [address], [place] [phone] * CT Abdomen Pelvis wo Contrast (03/10/2025 11:54 AM EDT) Anatomical Region Laterality Modality Body Computed Tomogra phy 03/10/2025 2:33 PM EDT Impressions 03/10/2025 2:38 PM EDT NO ACUTE ABNORMALITY. -------- FINAL REPORT -------- Dictated By: Toño Jorgensen Dictated Date: 03/10/2025 14:33 ET Assigned Physician: Toño Jorgensen Reviewed and Electronically Signed By: Toño Jorgensen Signed Date: 03/10/2025 14:38 ET Workstation ID: [id number] Transcribed By: Self Edit Transcribed Date: 03/10/2025 14:33 ET Narrative 03/10/2025 2:38 PM EDT PROCEDURE: CT Abdomen and Pelvis without contrast INDICATION: unspecified abdominal pain TECHNIQUE: CT of the abdomen and pelvis without contrast. Multiplanar reformats. The examination was performed utilizing dose reduction techniques. DLP: A 57 mGy/cm COMPARISON: No priors available. FINDINGS: LOWER THORAX: Lung bases are clear. HEPATOBILIARY: 2.2 cm mass at the right hepatic dome is not fully characterized on this exam. Cholecystectomy. SPLEEN: No splenomegaly. PANCREAS: No focal mass or ductal dilatation. ADRENALS: No nodules. KIDNEYS/URETERS: Punctate stone left kidney. No solid mass or hydronephrosis. PELVIC ORGANS/BLADDER: Status post hysterectomy. PERITONEUM / RETROPERITONEUM: No ascites or free air. No retroperitoneal lymphadenopathy. VESSELS: Scattered atherosclerotic calcifications throughout the aorta and its major branches. No aneurysm. GI TRACT: Mayito-en-Y gastric bypass. No obstruction. Prominent stool burden throughout the colon. BONES AND SOFT TISSUES: Scattered degenerative changes seen throughout the bones. Soft tissues are unremarkable. Procedure Note Toño Jorgensen MD - 03/10/2025 PROCEDURE: CT Abdomen and Pelvis without contrast INDICATION: unspecified abdominal pain TECHNIQUE: CT of the abdomen and pelvis without contrast. Multiplanarreformats. The examination was performed utilizing dose reductiontechniques. DLP: A 57 mGy/cm COMPARISON: No priors available. FINDINGS: LOWER THORAX: Lung bases are clear. HEPATOBILIARY: 2.2 cm mass at the right hepatic dome is not fullycharacterized on this exam. Cholecystectomy. SPLEEN: No splenomegaly. PANCREAS: No focal mass or ductal dilatation. ADRENALS: No nodules. KIDNEYS/URETERS: Punctate stone left kidney. No solid mass orhydronephrosis. PELVIC ORGANS/BLADDER: Status post hysterectomy. PERITONEUM / RETROPERITONEUM: No ascites or free air. No retroperitoneallymphadenopathy. VESSELS: Scattered atherosclerotic calcifications throughout the aorta andits major branches. No aneurysm. GI TRACT: Mayito-en-Y gastric bypass. No obstruction. Prominent stoolburden throughout the colon. BONES AND SOFT TISSUES: Scattered degenerative changes seen throughout thebones. Soft tissues are unremarkable. IMPRESSION: NO ACUTE ABNORMALITY. -------- FINAL REPORT -------- Dictated By: Toño Jorgensen Dictated Date: 03/10/2025 14:33 ET Assigned Physician: Toño Jorgensen Reviewed and Electronically Signed By: Toño Jorgensen Signed Date: 03/10/2025 14:38 ET Workstation ID: [id number] Transcribed By: Self Edit Transcribed Date: 03/10/2025 14:33 ET us Lara B[address]ON CT PROCEDURES Final Result * Annual BMP Blood Test (06/14/2023) Annual BMP Blood Test Abstracted us Historical Provider HEALTH MAINTENANCE Final Result * (ABNORMAL) Lipid panel (06/14/2023) LDL/HDL Ratio 5(A) 0 - 4 Triglycerides 153(A) 0 - 150 mg/dL Cholesterol 223(A) 0 - 200 mg/dL HDL 47 >=40 mg/dL LDL Cholesterol 146(A) 0 - 100 mg/dL Blood Venous blood specimen / Unknown us Historical Provider LAB BLOOD ORDERABLES Britney l Result from Last 3 Months or Most Recently Relevant to Health Maintenance Insurance [facility] [place] [employer] Advance Directives Documents on File Type Date Recorded Patient Cable Television Technician Expl anation Health Care Decision (hx) 03/16/2014 AD MACIEL DIRECTIVE Health Care Decision (hx) 03/16/2014 AD MACIEL DIRECTIVE Care Teams Engine Test Cell Technician Relationship Specialty Start Date End Date Aldo Weiner NP [address] [place] [address] PCP - General 02/14/23
== END 2025-04-06 15:31 | disposition home or self-care (01) ==
PROVIDERS: PCP Nurse Practitioner Family; Visit Provider Physician Assistant Medical
DX: Z13.9 Encounter for screening, unspecified (principal); R35.0 Frequency of micturition

== ENCOUNTER 2025-04-06 13:24 | Outpatient (REF) | payer OTHER, SELFPAY | END 2025-04-06 13:25 | disposition home or self-care (01) | LOC: HO.LNP 13:24 | PROVIDERS: PCP Nurse Practitioner Family; Visit Provider Physician Assistant Medical | DX: N39.0 Urinary tract infection, site not specified (principal); Z13.9 Encounter for screening, unspecified | CPT/HCPCS: 81003; 87086; 87088; 87186; 99212 ==

== ENCOUNTER 2025-05-07 08:34 | Outpatient (AMB) | payer OTHER, SELFPAY ==
--- NOTE | 2025-05-07 08:30 | A.OFFPC_ITS ---
Vital Signs 05/07/25 08:44 Height 5 ft 1 in Weight 157 lb BMI 29.7 BP 138/82 Blood Pressure Location Rt brachial Position Sitting Respiration 18 Pulse 77 Pulse Source Pulse Oximeter Pulse Oximetry (%) 98 Oxygen Delivery Method Room Air Intake Visit Reasons: Follow up Allergies bupropion (From Wellbutrin) Allergy (Verified 05/07/25 09:06) nausea, diarrhea zolpidem (From Ambien) Allergy (Verified 05/07/25 09:06) nausea, diarrhea Medication List - Last Reconciled 05/07/25 by Ji Garza, [facility]- cetirizine 10 mg PO DAILY PRN clonazepam (Klonopin) 0.5 mg PO DAILY docusate sodium 100 mg PO DAILY PRN 90 days Tobacco use date assessed: 05/07/25 Dental Screening Dental Screen Date: 05/07/25 Did you have a dental visit in the last 12 months?: Yes Did you have a dental problem in the last 6 months where you did not have access to dental care?: No Was dental information given to patient?: Patient has dentist HPI Follow up HPI Details Chief Complaint The patient presents with ongoing left flank discomfort and a history of kidney stones. History of Present Illness The patient is a 44-year-old female presenting with a follow-up visit. The patient reports improvement in constipation with the use of a stool softener. The patient has a history of nephrolithiasis and is currently experiencing left flank discomfort. She reports slight costovertebral angle tenderness on the left side, which was noted during the examination. The patient has not had imaging studies in years and recalls a procedure related to kidney stones performed in [place], though details are unclear. The patient recently had a urinary tract infection treated with antibiotics and reports frequent urinary tract infections. Social History Health Maintenance Review of Systems - Gastrointestinal: Reports improvement in constipation with stool softener. - Genitourinary: Reports ongoing left fl ank discomfort and frequent urinary tract infections. -denies any current dysuria, though has some pelvic pressure . denies fevers, chills, n/v, hematuria, vag discharge Physical Exam General: Cooperative, healthy appearing, comfortable, no acute distress and well developed Orientation: Patient oriented x3 Limitations: No limitations Head: Normal to inspection Ears: Hearing grossly normal bilaterally Nose: Normal external nose present Face and sinus: Normal facial exam Eyes: Appearance normal, both eyes and all related structures Neck: Normal visual inspection and Yes full ROM Respiratory: Normal respiratory effort and able to speak in complete sentences. Clear to auscultation bilaterally Cardiovascular: Regular rate and rhythm. Normal S1 and S2 GI: Normal to inspection. Soft to palpation and nontender gu: CVA tenderness to left Skin: No rashes or lesions noted Neuro: Patient oriented x3 Extremities: Normal to inspection Results Plan The plan includes obtaining a CT urogram to evaluate the patient's history of nephrolithiasis and current left flank discomfort. A urine analysis will be conducted to assess for any ongoing urinary tract infection. UA was clean, awaiting culture Discussion Notes I discussed with the patient the need for a CT urogram to further investigate her left flank discomfort and history of kidney stones. We also talked about performing a urine analysis to check for any current urinary tract infection. Any worsening symptoms ncluding increase in flank pain, fevers, chills, increase in pelvic pressure, she needs to go to the ER. Patient Instructions - Continue using stool softener as neede d for constipation. - Follow up for CT urogram and urine tad lysis as scheduled. PFSH Surgical History Hx of bariatric surgery Family History Father Hx of prostatic malignancy Hypertension Mother Diabetes Hypertension Social History Housing: House Patient Tobacco Use Status: Never used Tobacco e-Cigarette/Vaping Use: Never Used service: No Current occupational status: employed Cognitive needs: No Hearing needs: No Vision needs: Yes Questionnaire Thrive Questionnaire Date Thrive assessed: 02/02/25 Physical exam (Primary Care) Vital Signs: Last Vital Signs Pulse 77 05/07/25 08:44 Resp 18 05/07/25 08:44 BP 138/82 05/07/25 08:44 Pulse Ox 98 05/07/25 08:44 Oxygen Delivery Method Room Air 05/07/25 08:44 BMI result Body Mass Index 29.7 Tobacco/Smoking Status: Tobacco use Status Tobacco use date assessed 05/07/25 05/07/25 08:47 Patient Tobacco Use Status Never used Tobacco 05/07/25 08:31 e-Cigarette/Vaping Use Never Used 05/07/25 08:31 Thrive Assessment: Date of Thrive Assessment Date Thrive assessed 02/02/25 05/07/25 08:31 Results AMB Urinalysis, Automated UA Leukoctes 0 Randal/uL Last Edit by Sonamra Jw Arreola MA on 05/07/25 09:3 7 UA Nitrite Negative Last Edit by Sonamgaetano Arreola MA on 05/07/25 09:37 UA Urobilinogen 0 mg/dL Last Edit by Sonam Arreola MA on 05/07/25 09 :37 UA Protein 0 mg/dL Last Edit by Sonam Arreola MA on 05/07/25 09:37 UA pH 6.0 Last Edit by Sonam Arreola MA on 05/07/25 09:37 UA Blood 0 James/uL Last Edit by Sonamgaetano Arreola MA on 05/07/25 09:37 UA Specific [place] 1.010 Last Edit by Sonam Arreola MA on 05/07/25 09:37 UA Ketone Negative Last Edit by Sonamgaetano EsparzasALYCIA on 05/07/25 09:37 UA Bilirubin 0 mg/dL Last Edit by Sonam Arreola MA on 05/07/25 09:37 UA Glucose 0 mg/dL Last Edit by Sonam Arreola MA on 05/07/25 09:37 Results Reviewed Results Reviewed: Laboratory Last Values Urine pH (Auto) 6.0 05/07/25 09:04 Specific [place] (Auto) 1.010 05/07/25 09:04 Urine Protein (Auto) 0 mg/dL 05/07/25 09:04 Glucose (UA)(Auto) 0 mg/dL 05/07/25 09:04 Urine Ketones (Auto) Negative 05/07/25 09:04 Urine Blood (Auto) 0 James/uL 05/07/25 09:04 Urine Nitrite (Auto) Negative 05/07/25 09:04 Urine Bilirubin (Auto) 0 mg/dL 05/07/25 09:04 Urine Urobilinogen (Auto) 0 mg/dL 05/07/25 09:04 Leukocyte Esterase (Auto) 0 Randal/uL 05/07/25 09:04 Coding Level of Care Code Est Pt Level 3 (52479) Diagnoses Hx of renal calculi Z87.442 UTI (urinary tract infection) N39.0 Pelvic pressure in female R10.2 Assessment & Plan Assessment & Plan (1) Hx of renal calculi: Code(s): Z87.442 - Personal history of urinary calculi Category: Medical (2) UTI (urinary tract infection): Code(s): N39.0 - Urinary tract infection, site not specified Category: Medical (3) Pelvic pressure in female: Code(s): R10.2 - Pelvic and perineal pain Category: Medical Plan . Orders: Orders Urine Culture Today N39.0 - Urinary tract infection, site not specified, Z87.442 - Personal history of urinary calculi Comprehensive Met. Panel Today N39.0 - Urinary tract infection, site not sp ecified TSH reflex Free T4 Today N39.0 - Urinary tract infection, site not specified CT urogram Today Z87.442 - Personal history of urinary calculi UA CC w/rflx Micro + Cult Today N39.0 - Urinary tract infection, site not specified, Z87.442 - Personal history of urinary calculi Complete Blood Count Auto Diff Today N39.0 - Urinary tract infection, site not specified AMB Urinalysis Automated Today Z13.9 - Encounter for screening, unspecified
[2025-05-07 08:44] VITALS: BP 138/82; PULSE 77; RESP 18; O2SAT 98; BMI 29.7
--- OUTSIDE RECORDS SUMMARY | 2025-05-07 09:32 | XMS_ITS | Encounter Summary ---
Author Organization [facility] Address [address] [place] [address] Care Team Providers Care Supreme Court Judge Name Role Phone Fareed Logan Unavailable Unavailable Aldo Weiner MANAGER WELDING Primary Care Provider Unavailable Reason for Visit * Reason Onset Date Comments External Sleep Study Request 04/10/2023 Sle ep Study Encounter Details Date Type Department Care Team Description 04/10/2023 Telephone General Surgery - [address] [place] [address] Rancho Cee MD [address] [place] [address] [address] [place] [address] External Sleep Study Request (Sleep Study/) Social History Tobacco Use Types Packs/Day Years Used Date Smoking Tobacco: Never Smokeless Tobacco: Never Alcohol Use Standard Drinks/Week Comments No 0 (1 standard drink = 0.6 oz pur e alcohol) Alcohol Habits Answer Date Recorded How often do you have a drink containing alcohol ? Never 11/18/2019 How many drinks containing a lcohol do you have on a typical day when you are drinking? Not asked How often do you have six or more drinks on one occasion? Not asked Sex Assigned at Date Recorded Not on file Job Start Date Occupation Industry Not on file Not on file Not on file COVID-19 Exposure Response Date Recorded In the last 10 days, have yo u been in contact with someone who was confirmed or suspected to have Coronavirus/COVID-19? No / Unsure 04/05/2023 2:08 PM EDT documented as of this encounter Miscellaneous Notes * Telephone Encounter - Zayra Alan - 04/10/2023 3:05 PM EDT [facility] AUTH RECEIVED VIA [employer] Authorization Number: [id number] Review Date: 04/10/2023 Expiration Date: 07/09/2023 Order, notes, and benefits faxed to [facility]. They will contact patient to schedule,notification letter sent. documented in this encounter Plan of Treatment Not on file documented as of this encounter Visit Diagnoses Not on filedocumented in this encounter Care Teams Supreme Court Judge Relationship Specialty Start Date End Date Fareed Logan PCP - Sharepoint Manager 01/27/09 Aldo Weiner NP PCP - General Nurse Practioner Adult Health 02/14/23 documented as of this encounter
--- OUTSIDE RECORDS SUMMARY | 2025-05-07 09:32 | XMS_ITS | Encounter Summary ---
Author Organization [facility] Address [address] [place] [address] Care Team Providers Care Tube Trailer Filler Name Role Phone Aldo Weiner DAIRY EQUIPMENT INSTALLER Primary Care Provider Encounter Details Date Type Department Care Team (Late st Contact Info) Description 03/04/2025 Lab Requisition [facility] - Main Lab [address] [facility] [employer] [facility] [place] [phone] Lara Howard PA [facility] [address] [address] Urinary tract infection, site not specified; Unspecified abdominal pain Social History Tobacco Use Types Packs/Day Years Used Date Smoking Tobacco: Never Smokeless Tobacco: Never Alcohol Use Standard Drinks/Week Comments No 0 (1 standard drink = 0.6 oz pur e alcohol) Comments Unknown Sex and Gender Information Value Date Recorded Sex Assigned at Not on file Legal Sex Female 4:57 PM EST Gender Identity Not on file Sexual Orientation Not on file documented as of this encounter Plan of Treatment Upcoming Encounters Date Type Department Care Team (Late Contact Info) Description 07/28/2025 1:15 PM EST Office Visit Bariatric Surgery - [place] [address] [phone] Rancho Cee MD [address] [address] documented as of this encounter Procedures Procedure Name Priority Date/Time Associated Diagnosis Comments CULTURE URINE Routine 03/04/2025 12:00 AM EDT Urinary tract infection, site not specified Unspecified abdominal pain documented in this encounter Results * (ABNORMAL) Culture urine (03/04/2025 12:00 AM EDT) Culture, Urine >100,000 CFU/mL Escherichia coli(A) MERCED 03/06/2025 10:09 AM EDT [facility] Comment: This is an edited result. Previous organism was Gram negative bacilli on 03/05/2025 at 1354 EDT. Urine Urine specimen obtained by clean catch procedure / Unknown 03/04/2025 03/04/2025 6:25 PM EDT Narrative Organism Antibiotic Method Susceptibility Escherichia coli Amoxicillin/Clavulanate MERCED 16 ug/ml: Intermediate Escherichia coli Ampicillin/Sulbactam MERCED 16 ug/ml: Intermediate [...] MERCED <=1 ug/ml: Susceptible Escherichia coli Ciprofloxacin MRECED >=4 ug/ml: Resistant Escherichia coli Levofloxacin MERCED >=8 ug/ml: Resistant Escherichia coli Nitrofurantoin MERCED <=16 ug/ml: Susceptible Escherichia coli Trimethoprim/Sulfamethoxazole MERCED <=20 ug/ml: Susceptible us Lara XIE LAB MICROBIOLOGY - GENERAL ORD ERABLES Final Result [facility] [address] [place] [address], [place] [phone] documented in this encounter Visit Diagnoses Diagnosis Urinary tract infection, site not specified Unspecified abdominal pain documented in this encounter Care Teams Tube Trailer Filler Relationship Specialty Start Date End Date Aldo Weiner NP [address] [place] [address] PCP - General 02/14/23 documented as of this encounter
== END 2025-05-07 09:52 | disposition home or self-care (01) ==
LOC: HO.HMCC 08:35
PROVIDERS: PCP Nurse Practitioner Family; Visit Provider Nurse Practitioner Family
DX: Z87.442 Personal history of urinary calculi (principal); N39.0 Urinary tract infection, site not specified; R10.2 Pelvic and perineal pain; Z13.9 Encounter for screening, unspecified

== ENCOUNTER 2025-05-07 08:34 | Outpatient (REF) | payer OTHER, SELFPAY ==
[2025-05-07 10:45] LABS: Appearance Urine Clear; Glucose Urine UA Negative (Negative); PH 6.0 (5.0-9.0); Specific Gravity - Urine 1.015 (1.005-1.025); UMIC TRIGGER UACC YES
== END 2025-05-07 08:35 | disposition home or self-care (01) ==
LOC: HO.LNP 08:34
PROVIDERS: PCP Nurse Practitioner Family; Visit Provider Nurse Practitioner Family
DX: N39.0 Urinary tract infection, site not specified (principal); R10.2 Pelvic and perineal pain; Z87.442 Personal history of urinary calculi; Z79.899 Other long term (current) drug therapy
CPT/HCPCS: 81001; 81003; 87086; 87088; 87186; 99212

== ENCOUNTER 2025-06-23 14:51 | Outpatient (AMB) | payer OTHER, SELFPAY ==
[2025-06-23 14:53] VITALS: BP 133/78; PULSE 73; BMI 29.7
--- NOTE | 2025-06-23 14:53 | MHC.OFFVIS ---
Vital Signs 06/23/25 14:53 Height 5 ft 1 in Weight 157 lb 6.561 oz BMI 29.7 BP 133/78 Blood Pressure Location Lt brachial Position Sitting Pulse 73 Intake Visit Reasons: colo screening Intake Note: Pt c/o; she had a colonoscopy at the age of 12 in [place], Denies GI symptoms. Ingredient Handler Required: No Accompanied by: Self / Same As Patient Allergies bupropion (From Wellbutrin) Allergy (Verified 06/23/25 14:56) nausea, diarrhea zolpidem (From Ambien) Allergy (Verified 06/23/25 14:56) nausea, diarrhea HPI HPI colo screening: Details: 44-year-old female here for preprocedural meeting to discuss a screening colonoscopy. She is referred by Ji Garza. PMX Hypertension Nephrolithiasis Constipation * SURGICAL HISTORY Bariatric surgery * ALLERGIES Bupropion Zolpidem * [facility] LABS: Laboratory Tests 02/13/25 08:15 WBC 7.6 Hgb 13.0 Hct 37.6 Plt Count 381 Estimated GFR > 60 Total Bilirubin 0.3 AST 26 ALT 27 Alkaline Phosphatase 70 TSH 1.62 TODAY'S VISIT First colonoscopy? : one in [place] > 10 years ago for problems that turned out to be GB Bowel or upper GI problems: She has CIC controlled with colace and she has bentyl and zofran prn. The N/V is attributed to her gastric bypass and occasional over eating. Cardiac or respiratory problems: [employer] Problems with anesthesia or sedation:No Infectious disease problems: NO Family history:No PFSH Medical History (Updated 06/23/25 @ 15:08 by TAURUS Duckworth) History of nephrolithotomy with removal of calculi Surgical History (Updated 06/23/25 @ 15:00 by JEAN-CLAUDE Starkey) Hx laparoscopic cholecystectomy History of tubal ligation History of hysterectomy H/O gastric sleeve (~2014) Hx of bariatric surgery Family History Father Hx of prostatic malignancy Hypertension Mother Diabetes Hypertension Social History Housing: House Patient Tobacco Use Status: Never used Tobacco e-Cigarette/Vaping Use: Never Used service: No Current occupational status: employed Cognitive needs: No Hearing needs: No Vision needs: Yes Review of Systems Const Denies fatigue, Denies fever(s), Denies night sweats, Denies poor appetite and Denies weight loss ENT Reports Normal hearing present, Denies dental pain, Denies dysphagia, Denies hearing loss, Denies mouth pain, Denies odynophagia, Denies throat swelling, Denies tongue swelling and Reports other (Dentition adequate) Card Reports no additional complaints Resp Reports no additional complaints GI Details: Denies abdominal pain, Denies melena, Denies bloating, Denies hematochezia, Reports constipation, Denies GI cramping, Denies dysphagia, Denies excessive flatus, Denies early satiety, Denies heartburn, Denies diarrhea, Reports nausea, Denies odynophagia, Reports vomiting and Denies hematemesis Skin/Breast Denies pruritus, Denies lesions, Denies rash and Denies jaundice Neuro Reports Normal hearing present and Denies Abnormal speech present Endo Denies fatigue Aller/Immun Denies throat swelling and Denies tongue swelling Physical Exam Vital Signs: Last Vital Signs Pulse 73 06/23/25 14:53 BP 133/78 06/23/25 14:53 BMI result Body Mass Index 29.7 Const General: cooperative, no acute distress, well developed and well groomed Nutritional Appearance: well nourished and overweight Orientation/consciousness: oriented to person, oriented to place and oriented to time Limitations: No language barrier HEENT Head: Yes normocephalic and Yes atraumatic Eyes General: appearance normal, both eyes and all related structures Pupils: Equal, round and reactive pupils present Neck Neck: Yes normal visual inspection and Yes no lymphadenopathy Thyroid: Thyroid normal Resp Effort & Inspection: normal respiratory effort and able to speak in complete sentences Auscultation: clear to auscultation bilaterally Cardio Rate: regular rate Rhythm: regular rhythm Heart sounds: Normal, physiologic split S2 sound present Peripheral pulses: radial pulses present and posterior tibial pulses present GI Inspection: No distended, No Abdominal panniculus present, Yes obesity, Yes scar and Yes striae Palpation (GI): Soft to palpation, nontender, no guarding, not rigid and No hepatosplenomegaly present Percussion: Yes normal to percussion Auscultation: normal bowel sounds Rectal Exam - Female: deferred Abdomen image:  1. Surgical scars 2. Skin General skin exam: no rashes or lesions noted, turgor normal, skin not dry, no jaundice, No spider nevi and no striae Rashes: no rashes Nails: normal Neuro General: oriented to person, oriented to place and oriented to time Cranial nerves: Yes Equal, round and reactive pupils present and Yes Normal hearing present Speech: No Abnormal speech present Extrem General: Yes normal to inspection, No clubbing, No cyanosis and No edema Psych Appearance: grossly normal and well kempt Mental Status: mental status grossly normal Speech and movement: Normal speech and movement present Affect: normal affect Attitude: cooperative Thought process: Normal thought process present and not confabulating Thought content: Normal thought content present Insight: Good insight present (Psych) Judgement: Good judgement present (Psych) Assessment & Plan Assessment & Plan (1) Pre-op examination: Code(s): Z01.818 - Encounter for other preprocedural examination Category: Medical Plan First colonoscopy? : one in [place] > 10 years ago for problems that turned out to be GB Bowel or upper GI problems: She has CIC controlled with colace and she has bentyl and zofran prn. The N/V is attributed to her gastric bypass and occasional over eating. Cardiac or respiratory problems: [employer] Problems with anesthesia or sedation:No Infectious disease problems: NO Family history:No Orders: Referrals GI Procedure Notification Z01.818 - Encounter for other preprocedural examination Medications: New sodium,potassium,mag sulfates 17.5-3.13-1.6 gram (Suprep Bowel Prep Kit) 480 mL orally; FOR COLONOSCOPY PREP 354 mL 0RF Coding Level of Care Code New Pt Level 3 (64520) Diagnoses Pre-op examination Z01.818
== END 2025-06-23 15:17 | disposition home or self-care (01) ==
LOC: HO.HGI 14:52
PROVIDERS: PCP Nurse Practitioner Family; Visit Provider Nurse Practitioner
DX: Z01.818 Encounter for other preprocedural examination (principal); Z12.11 Encounter for screening for malignant neoplasm of colon
CPT/HCPCS: 99203

== ENCOUNTER → 2025-06-23 14:51 | Outpatient (BNVA) | payer OTHER, SELFPAY | PROVIDERS: PCP Nurse Practitioner Family; Visit Provider Nurse Practitioner | DX: Z01.818 Encounter for other preprocedural examination (principal); Z90.49 Acquired absence of other specified parts of digestive tract; Z98.84 Bariatric surgery status | CPT/HCPCS: 99202 ==